=== PATIENT | male | born 1965 | race Caucasian/White ===

== ENCOUNTER 2018-01-10 16:16 | Emergency (ER) | payer MEDICAID ==
[~2018-01-10] VITALS: Ht 170.2 cm; Wt 76.6 kg
[2018-01-10] MEDS ORDERED: SODIUM CHLORIDE 0.9% 1,000ML IVBOLUS ONE (17:00)
[2018-01-10 17:02] LABS: BASOPHILS # (AUTO) 0.05 x10^3/uL (0-0.1); BASOPHILS % (AUTO) 0 % (0-1); EOSINOPHILS # (AUTO) 0.01 x10^3/uL (0-0.4); EOSINOPHILS % (AUTO) 0 % (1-7); LYMPHOCYTES # (AUTO) 0.94 x10^3/uL (1-3.4); LYMPHOCYTES % (AUTO) 6 % (22-44); MD NO; MEAN CORPUSCULAR HEMOGLOBIN 33.3 pg (27.5-34.5); MEAN CORPUSCULAR VOLUME 98.2 fL (81-97); MEAN PLATELET VOLUME 9.2 fL (7.4-10.4); MONOCYTES # (AUTO) 1.01 x10^3/uL (0.2-0.8); MONOCYTES % (AUTO) 6 % (2-9); NEUTROPHILS # (AUTO) 13.75 x10^3/uL (1.8-6.8); NEUTROPHILS % (AUTO) 87 % (42-75); PLATELET COUNT 291 x10^3/uL (130-400); RED BLOOD COUNT 5.16 x10^6/uL (4.38-5.82); RED CELL DISTRIBUTION WIDTH 15.4 % (9.4-14.8)
[2018-01-10 17:11] LABS: ALBUMIN 3.5 g/dL (3.4-5.0); ANION GAP 24 mmol/L (5-15); CALCIUM 10.6 mg/dL (8.5-10.1); CHLORIDE 105 mmol/L (98-107); SALICYLATE LEVEL 4.8 mg/dL (2.8-20.0)
[2018-01-10 17:16] LABS: ALANINE AMINOTRANSFERASE 24 U/L (12-78); ALKALINE PHOSPHATASE 98 U/L (45-117); BILIRUBIN,TOTAL 1.1 mg/dL (0.2-1.0); CREATININE 1.11 mg/dL (0.7-1.3); TOTAL PROTEIN 7.4 g/dL (6.4-8.2)
[2018-01-10 17:17] LABS: ACETAMINOPHEN < 2 mcg/mL (10-30)
[2018-01-10 18:44] LABS: MICROSCOPIC INDICATED
[2018-01-10 18:51] LABS: AMPHETAMINE SCREEN, URINE Negative (Negative); BARBITURATE SCREEN, URINE Negative (Negative); BENZODIAZEPINE SCREEN, URINE Negative (Negative); CANNABINOID SCREEN, URINE Negative (Negative); COCAINE SCREEN, URINE Negative (Negative); METHADONE SCREEN, URINE Negative (Negative); OPIATE SCREEN, URINE Negative (Negative)
[2018-01-10 18:58] LABS: CULTURE INDICATED? NO
[2018-01-10 19:44] VITALS: BP 154/91
[2018-01-10] MEDS ORDERED: SIMV80TA7 PO (19:46)
[2018-01-10] MEDS ORDERED: METF1000 PO (19:46)
[2018-01-10] MEDS ORDERED: BACITRACIN ZINC OINT 500U/GM, 0.9 GM ONE (19:59)
== END 2018-01-10 20:27 | disposition home or self-care (01) ==
LOC: ED 17:28
DX: K85.00 Idiopathic acute pancreatitis without necrosis or infection (principal); E11.621 Type 2 diabetes mellitus with foot ulcer; L89.891 Pressure ulcer of other site, stage 1; R45.851 Suicidal ideations; F20.9 Schizophrenia, unspecified; E78.00 Pure hypercholesterolemia, unspecified; Z59.0 Homelessness; Z87.891 Personal history of nicotine dependence; Z91.14 Patient's other noncompliance with medication regimen
CPT/HCPCS: 36415; 73630; 76700; 80053; 80307; 80329; 81001; 83690; 85025; 96360; 99285; J7030; G0480

== ENCOUNTER 2018-01-11 10:54 | Inpatient (IN) | payer MEDICARE, MEDICAID ==
[~2018-01-11] VITALS: Ht 172.7 cm; Wt 86.2 kg
[~2018-01-11 10:54] MED LIST: METF1000 PO; SIMV80TA7 PO
[2018-01-11] MEDS ORDERED: SODIUM CHLORIDE FLUSH 10ML SYR IVF ONE (12:00)
[2018-01-11 12:10] LABS: MEAN CORPUSCULAR HEMOGLOBIN 32.7 pg (27.5-34.5); MEAN CORPUSCULAR HGB CONC 33.8 g/dL (33.2-36.2); MEAN CORPUSCULAR VOLUME 96.7 fL (81-97); MEAN PLATELET VOLUME 8.9 fL (7.4-10.4); PLATELET COUNT 220 x10^3/uL (130-400); RED BLOOD COUNT 4.46 x10^6/uL (4.38-5.82); RED CELL DISTRIBUTION WIDTH 15.6 % (9.4-14.8)
[2018-01-11 12:11] LABS: INTERNATIONAL NORMALIZED RATIO 1.02 (0.93-1.1); PROTHROMBIN TIME 10.5 Seconds (9.6-11.5)
[2018-01-11 12:14] LABS: ANION GAP 20 mmol/L (5-15); CALCIUM 9.7 mg/dL (8.5-10.1); CHLORIDE 98 mmol/L (98-107)
[2018-01-11 12:20] LABS: ALANINE AMINOTRANSFERASE 22 U/L (12-78); ALKALINE PHOSPHATASE 80 U/L (45-117); BILIRUBIN,TOTAL 1.4 mg/dL (0.2-1.0); CREATININE 0.92 mg/dL (0.7-1.3); HEMOGRAM NOTE RECHECKED; TOTAL PROTEIN 6.4 g/dL (6.4-8.2); TROPONIN I < 0.015 ng/mL (0.000-0.045)
[2018-01-11 12:29] LABS: MD YES
[2018-01-11 12:30] LABS: BAND#(MANUAL) 0.67 x10^3/uL; BANDS%(MANUAL) 4 % (0-7); LYMPH#(MANUAL) 0.84 x10^3/uL (1-3.4); LYMPHS% (MANUAL) 5 % (22-44); MONOS#(MANUAL) 0.34 x10^3/uL (0.3-2.7); MONOS% (MANUAL) 2 % (2-9); SEG#(MANUAL) 14.95 x10^3/uL (1.8-6.8); SEGS% (MANUAL) 89 % (42-75)
[2018-01-11] MEDS ORDERED: THIAMINE 100MG TABLET ONE (12:30)
[2018-01-11] MEDS ORDERED: SODIUM CHLORIDE 0.9% 1,000ML IVBOLUS ONE ×2 (12:30→13:30)
[2018-01-11] MEDS ORDERED: MAGNESIUM SULFATE 1 GM in SODIUM CHLORIDE 0.9% 50 ML IV ONE (12:30)
[2018-01-11] MEDS ORDERED: POTASSIUM CHLORIDE 10% 40 MEQ/30 ML UDC PO ONE (12:30)
[2018-01-11] MEDS ORDERED: POTASSIUM CHLORIDE 20 MEQ TAB.ER.PRT ONE (12:30)
[2018-01-11] MEDS ORDERED: THIAMINE 100MG TABLET PO ONE (12:30)
[2018-01-11 12:31] LABS: <PLATELET ESTIMATE> ADEQUATE; <PLT MORPHOLOGY> NORMAL PLT MORPH; <RBC MORPHOLOGY> NORMAL
[2018-01-11 12:44] LABS: PH, VENOUS 7.345 pH (7.320-7.420)
[2018-01-11 12:50] LABS: O2 FLOW ROOM AIR L/min
[2018-01-11 14:13] LABS: MICROSCOPIC AUTO
[2018-01-11] MEDS ORDERED: OMNIPAQUE 350 MG/ML, 100ML BOTTLE ONE (14:14)
[2018-01-11 14:17] LABS: CULTURE INDICATED? NO
[2018-01-11] MEDS ORDERED: LABETALOL 5MG/ML, 20ML IVPush PRN (16:30)
[2018-01-11] MEDS ORDERED: ACETAMINOPHEN 325 MG TABLET PO PRN (16:30)
[2018-01-11] MEDS ORDERED: BISACODYL 10 MG SUPP PR PRN (16:30)
[2018-01-11] MEDS ORDERED: POLYETHYLENE GLYCOL 17 GM PACKET PO PRN (16:30)
[2018-01-11] MEDS ORDERED: ONDANSETRON 2MG/ML, 2ML IVPush PRN (16:30)
[2018-01-11] MEDS ORDERED: ONDANSETRON ODT 4 MG PO PRN (16:30)
[2018-01-11] MEDS ORDERED: DEXTROSE 50%, 50ML SYRINGE IVPush PRN (17:00)
[2018-01-11] MEDS ORDERED: DEXTROSE 4 GM TAB.CHEW PO PRN (17:00)
[2018-01-11] MEDS ORDERED: GLUCAGON 1 MG IM PRN (17:00)
[2018-01-11] MEDS ORDERED: ENALAPRILAT 1.25 MG/ML, 2ML IVPush PRN (17:30)
[2018-01-11 17:36] VITALS: BP 101/59
[2018-01-11] MEDS: INSULIN LISPRO 100 UNITS/ML, PEN SQ-INSULIN SCH (21:00)
[2018-01-11] MEDS: NS + 20MEQ KCL 1,000 ML IV SCH (21:36)
[2018-01-11] MEDS: SODIUM CHLORIDE FLUSH 10ML SYR IVF SCH (21:36)
[2018-01-11] MEDS: NICOTINE 14MG/24 HR PATCH.TD24 TD SCH (21:36)
[2018-01-11] MEDS: ENOXAPARIN 40 MG/0.4 ML SQ SCH (21:36)
[2018-01-11 21:53] VITALS: BP 110/71
[2018-01-12 02:51] VITALS: BP 113/67
[2018-01-12 05:36] LABS: ALANINE AMINOTRANSFERASE 17 U/L (12-78); ALBUMIN 2.3 g/dL (3.4-5.0); ANION GAP 17 mmol/L (5-15); CALCIUM 8.6 mg/dL (8.5-10.1); CHLORIDE 103 mmol/L (98-107)
[2018-01-12 05:44] LABS: BASOPHILS # (AUTO) 0.03 x10^3/uL (0-0.1); BASOPHILS % (AUTO) 0 % (0-1); EOSINOPHILS # (AUTO) 0.11 x10^3/uL (0-0.4); EOSINOPHILS % (AUTO) 1 % (1-7); LYMPHOCYTES # (AUTO) 1.49 x10^3/uL (1-3.4); LYMPHOCYTES % (AUTO) 19 % (22-44); MD NO; MEAN CORPUSCULAR HEMOGLOBIN 32.7 pg (27.5-34.5); MEAN CORPUSCULAR VOLUME 96.2 fL (81-97); MEAN PLATELET VOLUME 8.9 fL (7.4-10.4); MONOCYTES # (AUTO) 0.54 x10^3/uL (0.2-0.8); MONOCYTES % (AUTO) 7 % (2-9); NEUTROPHILS % (AUTO) 72 % (42-75); PLATELET COUNT 171 x10^3/uL (130-400); RED BLOOD COUNT 3.76 x10^6/uL (4.38-5.82); RED CELL DISTRIBUTION WIDTH 15.7 % (9.4-14.8)
[2018-01-12 05:50] LABS: ALKALINE PHOSPHATASE 59 U/L (45-117); CREATININE 0.69 mg/dL (0.7-1.3); TOTAL PROTEIN 5.1 g/dL (6.4-8.2)
[2018-01-12] MEDS: POTASSIUM CHLORIDE 20 MEQ TAB.ER.PRT PO SCH ×2 (06:26→17:33)
[2018-01-12] MEDS: INSULIN LISPRO 100 UNITS/ML, PEN SQ-INSULIN SCH ×4 (07:00→20:26)
[2018-01-12] MEDS: NS + 20MEQ KCL 1,000 ML IV SCH (07:37)
[2018-01-12] MEDS: SODIUM CHLORIDE FLUSH 10ML SYR IVF SCH ×2 (07:39→20:53)
[2018-01-12 08:42] VITALS: BP 100/63
[2018-01-12] MEDS ORDERED: POTASSIUM PHOSPHATE 44 MEQ in SODIUM CHLORIDE 0.9% 500 ML IV ONE (09:00)
[2018-01-12] MEDS: POTASSIUM CHLORIDE 40 MEQ in LACTATED RINGERS 1,000 ML IV SCH ×2 (09:38→20:53)
[2018-01-12 10:22] LABS: HEMOGLOBIN A1C 5.5 % (4.2-6.3)
[2018-01-12 10:44] LABS: AMPHETAMINE SCREEN, URINE Negative (Negative); BARBITURATE SCREEN, URINE Negative (Negative); BENZODIAZEPINE SCREEN, URINE Negative (Negative); CANNABINOID SCREEN, URINE Negative (Negative); COCAINE SCREEN, URINE Negative (Negative); METHADONE SCREEN, URINE Negative (Negative)
[2018-01-12 10:49] LABS: OPIATE SCREEN, URINE Negative (Negative)
[2018-01-12 12:39] VITALS: BP 104/66
[2018-01-12] MEDS: FOLIC ACID 1 MG TABLET PO SCH (13:12)
[2018-01-12] MEDS: THIAMINE 100MG TABLET PO SCH (13:12)
[2018-01-12 13:40] LABS: SALICYLATE LEVEL 3.2 mg/dL (2.8-20.0)
[2018-01-12 13:51] LABS: ACETAMINOPHEN < 2 mcg/mL (10-30)
[2018-01-12 20:00] VITALS: BP 101/58
[2018-01-12] MEDS: NICOTINE 14MG/24 HR PATCH.TD24 TD SCH (20:53)
[2018-01-12] MEDS: ENOXAPARIN 40 MG/0.4 ML SQ SCH (20:53)
[2018-01-13 02:00] VITALS: BP 103/67
[2018-01-13 05:41] LABS: BASOPHILS # (AUTO) 0.04 x10^3/uL (0-0.1); BASOPHILS % (AUTO) 1 % (0-1); EOSINOPHILS # (AUTO) 0.13 x10^3/uL (0-0.4); EOSINOPHILS % (AUTO) 2 % (1-7); LYMPHOCYTES # (AUTO) 1.66 x10^3/uL (1-3.4); LYMPHOCYTES % (AUTO) 29 % (22-44); MD NO; MEAN CORPUSCULAR HEMOGLOBIN 33.1 pg (27.5-34.5); MEAN CORPUSCULAR HGB CONC 34.2 g/dL (33.2-36.2); MEAN CORPUSCULAR VOLUME 96.9 fL (81-97); MONOCYTES # (AUTO) 0.42 x10^3/uL (0.2-0.8); MONOCYTES % (AUTO) 8 % (2-9); NEUTROPHILS # (AUTO) 3.43 x10^3/uL (1.8-6.8); NEUTROPHILS % (AUTO) 60 % (42-75); PLATELET COUNT 143 x10^3/uL (130-400); RED BLOOD COUNT 3.71 x10^6/uL (4.38-5.82); RED CELL DISTRIBUTION WIDTH 15.1 % (9.4-14.8)
[2018-01-13 05:42] LABS: CHLORIDE 102 mmol/L (98-107)
[2018-01-13 06:05] LABS: ALANINE AMINOTRANSFERASE 16 U/L (12-78); ALBUMIN 2.2 g/dL (3.4-5.0); ALKALINE PHOSPHATASE 52 U/L (45-117); ANION GAP 13 mmol/L (5-15); BILIRUBIN,TOTAL 0.8 mg/dL (0.2-1.0); CALCIUM 8.8 mg/dL (8.5-10.1); CREATININE 0.56 mg/dL (0.7-1.3)
[2018-01-13 07:30] VITALS: BP 122/83
[2018-01-13] MEDS: INSULIN LISPRO 100 UNITS/ML, PEN SQ-INSULIN SCH ×4 (07:51→20:34)
[2018-01-13] MEDS: SODIUM CHLORIDE FLUSH 10ML SYR IVF SCH ×4 (08:14→21:00)
[2018-01-13] MEDS: THIAMINE 100MG TABLET PO SCH (08:14)
[2018-01-13] MEDS: FOLIC ACID 1 MG TABLET PO SCH (08:14)
[2018-01-13 08:18] VITALS: BP 111/72
[2018-01-13] MEDS ORDERED: GLUCAGON 1 MG IM PRN (09:00)
[2018-01-13] MEDS ORDERED: DEXTROSE 50%, 50ML SYRINGE IVPush PRN (09:00)
[2018-01-13] MEDS ORDERED: DEXTROSE 4 GM TAB.CHEW PO PRN (09:00)
[2018-01-13] MEDS: DOCUSATE 100 MG CAPSULE PO PRN (09:58)
[2018-01-13] MEDS: POTASSIUM CHLORIDE 20 MEQ TAB.ER.PRT PO SCH ×2 (09:58→16:29)
[2018-01-13] MEDS ORDERED: POTASSIUM PHOSPHATE 44 MEQ in SODIUM CHLORIDE 0.9% 500 ML IV ONE (10:00)
[2018-01-13] MEDS: IBUPROFEN 600 MG TABLET PO PRN (11:35)
[2018-01-13 13:30] VITALS: BP 118/80
[2018-01-13] MEDS: SENNA/DOCUSATE TABLET PO SCH (16:29)
[2018-01-13 19:21] VITALS: BP 116/77
[2018-01-13] MEDS: ENOXAPARIN 40 MG/0.4 ML SQ SCH (20:38)
[2018-01-13] MEDS: NICOTINE 14MG/24 HR PATCH.TD24 TD SCH (21:04)
[2018-01-14 01:32] VITALS: BP 122/79
[2018-01-14] MEDS: INSULIN LISPRO 100 UNITS/ML, PEN SQ-INSULIN SCH ×4 (07:00→21:00)
[2018-01-14 07:07] VITALS: BP 123/83
[2018-01-14] MEDS: SODIUM CHLORIDE FLUSH 10ML SYR IVF SCH ×4 (07:33→20:08)
[2018-01-14] MEDS: THIAMINE 100MG TABLET PO SCH (07:50)
[2018-01-14] MEDS: FOLIC ACID 1 MG TABLET PO SCH (07:51)
[2018-01-14] MEDS: SENNA/DOCUSATE TABLET PO SCH (07:52)
[2018-01-14 11:07] LABS: ANION GAP 9 mmol/L (5-15); CALCIUM 9.4 mg/dL (8.5-10.1); CHLORIDE 101 mmol/L (98-107); CREATININE 0.54 mg/dL (0.7-1.3)
[2018-01-14] MEDS ORDERED: POTASSIUM CHLORIDE 20 MEQ TAB.ER.PRT PO ONE (12:00)
[2018-01-14 12:38] LABS: HCT (SEDRATE) 42.3 % (39.2-51.8)
[2018-01-14 14:16] VITALS: BP 118/81
[2018-01-14] MEDS ORDERED: AMOX1TAB12 PO (17:51)
[2018-01-14] MEDS ORDERED: THIA100T67 PO (17:51)
[2018-01-14 18:55] VITALS: BP 127/84
[2018-01-14] MEDS: AMOXICILLIN/CLAV 875-125MG TABLET PO SCH (20:04)
[2018-01-14] MEDS: ENOXAPARIN 40 MG/0.4 ML SQ SCH (21:00)
[2018-01-14] MEDS: NICOTINE 14MG/24 HR PATCH.TD24 TD SCH (21:00)
[2018-01-15 02:02] VITALS: BP 121/80
[2018-01-15] MEDS: INSULIN LISPRO 100 UNITS/ML, PEN SQ-INSULIN SCH ×4 (07:00→21:00)
[2018-01-15] MEDS: SODIUM CHLORIDE FLUSH 10ML SYR IVF SCH ×4 (07:26→21:00)
[2018-01-15] MEDS: SENNA/DOCUSATE TABLET PO SCH (07:58)
[2018-01-15] MEDS: AMOXICILLIN/CLAV 875-125MG TABLET PO SCH ×2 (07:59→22:30)
[2018-01-15] MEDS: FOLIC ACID 1 MG TABLET PO SCH (08:00)
[2018-01-15] MEDS: THIAMINE 100MG TABLET PO SCH (08:00)
[2018-01-15 08:37] VITALS: BP 131/89
[2018-01-15 14:56] VITALS: BP 104/75
[2018-01-15] MEDS ORDERED: SODIUM CHLORIDE 0.9%, 500ML IVBOLUS ONE (17:00)
[2018-01-15] MEDS ORDERED: LACTATED RINGERS 500 ML IVBOLUS ONE (17:00)
[2018-01-15] MEDS: OLANZAPINE 10 MG TABLET PO SCH (21:00)
[2018-01-15] MEDS: NICOTINE 14MG/24 HR PATCH.TD24 TD SCH (21:00)
[2018-01-15] MEDS: ENOXAPARIN 40 MG/0.4 ML SQ SCH (21:00)
[2018-01-15 21:23] VITALS: BP 118/74
[2018-01-15] MEDS ORDERED: OLANZAPINE 5 MG TABLET ONE (22:04)
[2018-01-16 02:10] VITALS: BP 104/72
[2018-01-16] MEDS: INSULIN LISPRO 100 UNITS/ML, PEN SQ-INSULIN SCH ×4 (07:00→20:27)
[2018-01-16 07:02] VITALS: BP 130/92
[2018-01-16] MEDS: AMOXICILLIN/CLAV 875-125MG TABLET PO SCH ×2 (08:38→20:26)
[2018-01-16] MEDS: SODIUM CHLORIDE FLUSH 10ML SYR IVF SCH ×4 (08:39→20:26)
[2018-01-16] MEDS: FOLIC ACID 1 MG TABLET PO SCH (08:39)
[2018-01-16] MEDS: THIAMINE 100MG TABLET PO SCH (08:39)
[2018-01-16] MEDS: SENNA/DOCUSATE TABLET PO SCH (08:39)
[2018-01-16] MEDS ORDERED: SODIUM CHLORIDE 0.9%, 500ML IVBOLUS ONE (12:00)
[2018-01-16] MEDS: NS + 20MEQ KCL 1,000 ML IV SCH (12:15)
[2018-01-16 13:20] VITALS: BP 103/52
[2018-01-16 19:44] VITALS: BP 97/64
[2018-01-16] MEDS: OLANZAPINE 10 MG TABLET PO SCH (20:26)
[2018-01-16] MEDS: NICOTINE 14MG/24 HR PATCH.TD24 TD SCH (20:27)
[2018-01-16] MEDS: ENOXAPARIN 40 MG/0.4 ML SQ SCH (20:27)
[2018-01-17] MEDS: NS + 20MEQ KCL 1,000 ML IV SCH ×3 (00:31→20:46)
[2018-01-17 02:45] VITALS: BP 118/73
[2018-01-17 06:14] LABS: BASOPHILS # (AUTO) 0.03 x10^3/uL (0-0.1); BASOPHILS % (AUTO) 1 % (0-1); EOSINOPHILS # (AUTO) 0.21 x10^3/uL (0-0.4); EOSINOPHILS % (AUTO) 3 % (1-7); LYMPHOCYTES # (AUTO) 1.77 x10^3/uL (1-3.4); LYMPHOCYTES % (AUTO) 28 % (22-44); MD NO; MEAN CORPUSCULAR HEMOGLOBIN 33.6 pg (27.5-34.5); MEAN CORPUSCULAR HGB CONC 33.9 g/dL (33.2-36.2); MEAN CORPUSCULAR VOLUME 99.1 fL (81-97); MEAN PLATELET VOLUME 8.7 fL (7.4-10.4); MONOCYTES # (AUTO) 0.62 x10^3/uL (0.2-0.8); MONOCYTES % (AUTO) 10 % (2-9); NEUTROPHILS # (AUTO) 3.64 x10^3/uL (1.8-6.8); NEUTROPHILS % (AUTO) 58 % (42-75); PLATELET COUNT 191 x10^3/uL (130-400); RED BLOOD COUNT 3.99 x10^6/uL (4.38-5.82); RED CELL DISTRIBUTION WIDTH 16.1 % (9.4-14.8)
[2018-01-17 06:25] LABS: ANION GAP 11 mmol/L (5-15); CALCIUM 8.7 mg/dL (8.5-10.1); CHLORIDE 110 mmol/L (98-107)
[2018-01-17 06:29] LABS: CREATININE 0.53 mg/dL (0.7-1.3)
[2018-01-17] MEDS: INSULIN LISPRO 100 UNITS/ML, PEN SQ-INSULIN SCH ×4 (07:00→21:00)
[2018-01-17 07:44] VITALS: BP 113/75
[2018-01-17] MEDS: SODIUM CHLORIDE FLUSH 10ML SYR IVF SCH ×4 (09:00→20:47)
[2018-01-17] MEDS: AMOXICILLIN/CLAV 875-125MG TABLET PO SCH (09:00)
[2018-01-17] MEDS: DOCUSATE 100 MG CAPSULE PO PRN (09:05)
[2018-01-17] MEDS: FOLIC ACID 1 MG TABLET PO SCH (09:05)
[2018-01-17] MEDS: SENNA/DOCUSATE TABLET PO SCH (09:05)
[2018-01-17] MEDS: THIAMINE 100MG TABLET PO SCH (09:05)
[2018-01-17] MEDS: TAMSULOSIN 0.4 MG CAP.ER.24H PO SCH (10:30)
[2018-01-17] MEDS ORDERED: LORazepam 2 MG/ML, 1ML IVPush ONE (11:00)
[2018-01-17 12:53] VITALS: BP 105/63
[2018-01-17 20:23] VITALS: BP 126/85
[2018-01-17] MEDS: NICOTINE 14MG/24 HR PATCH.TD24 TD SCH (21:00)
[2018-01-17] MEDS: D5%-0.9% NACL+KCL 20MEQ 1,000 ML IV SCH (23:13)
[2018-01-17] MEDS: ENOXAPARIN 40 MG/0.4 ML SQ SCH (23:14)
[2018-01-18 02:00] VITALS: BP 103/68
[2018-01-18] MEDS: INSULIN LISPRO 100 UNITS/ML, PEN SQ-INSULIN SCH ×4 (07:00→20:16)
[2018-01-18 08:05] VITALS: BP 99/65
[2018-01-18] MEDS: SODIUM CHLORIDE FLUSH 10ML SYR IVF SCH ×4 (09:00→20:16)
[2018-01-18] MEDS: THIAMINE 100MG TABLET PO SCH (09:06)
[2018-01-18] MEDS: TAMSULOSIN 0.4 MG CAP.ER.24H PO SCH (09:06)
[2018-01-18] MEDS: SENNA/DOCUSATE TABLET PO SCH (09:06)
[2018-01-18] MEDS: FOLIC ACID 1 MG TABLET PO SCH (09:06)
[2018-01-18] MEDS: D5%-0.9% NACL+KCL 20MEQ 1,000 ML IV SCH ×2 (09:56→21:31)
[2018-01-18] MEDS ORDERED: LORazepam 0.5MG TABLET PO PRN (10:30)
[2018-01-18] MEDS: LORazepam 0.5MG TABLET PO SCH ×2 (10:50→20:14)
[2018-01-18 13:12] VITALS: BP 86/53
[2018-01-18 19:30] VITALS: BP 88/59
[2018-01-18] MEDS: NICOTINE 14MG/24 HR PATCH.TD24 TD SCH (20:13)
[2018-01-18] MEDS: ENOXAPARIN 40 MG/0.4 ML SQ SCH (20:14)
[2018-01-19] VITALS (7 sets, daily range): BP systolic 86–116; BP diastolic 58–77
[2018-01-19 05:36] LABS: CHLORIDE 110 mmol/L (98-107)
[2018-01-19 05:44] LABS: ALANINE AMINOTRANSFERASE 19 U/L (12-78); ALBUMIN 2.5 g/dL (3.4-5.0); ALKALINE PHOSPHATASE 63 U/L (45-117); ANION GAP 9 mmol/L (5-15); BILIRUBIN,TOTAL 0.6 mg/dL (0.2-1.0); CALCIUM 8.7 mg/dL (8.5-10.1); CREATININE 0.54 mg/dL (0.7-1.3); PREALBUMIN 15.2 mg/dL (20.0-40.0); TOTAL PROTEIN 5.5 g/dL (6.4-8.2)
[2018-01-19] MEDS: D5%-0.9% NACL+KCL 20MEQ 1,000 ML IV SCH (08:00)
[2018-01-19] MEDS: INSULIN LISPRO 100 UNITS/ML, PEN SQ-INSULIN SCH ×4 (08:00→20:02)
[2018-01-19] MEDS: SODIUM CHLORIDE FLUSH 10ML SYR IVF SCH ×4 (09:00→20:21)
[2018-01-19] MEDS: TAMSULOSIN 0.4 MG CAP.ER.24H PO SCH (09:41)
[2018-01-19] MEDS: THIAMINE 100MG TABLET PO SCH (09:41)
[2018-01-19] MEDS: FOLIC ACID 1 MG TABLET PO SCH (09:41)
[2018-01-19] MEDS: SENNA/DOCUSATE TABLET PO SCH (09:41)
[2018-01-19] MEDS: LORazepam 0.5MG TABLET PO SCH ×2 (09:42→20:20)
[2018-01-19] MEDS: NICOTINE 14MG/24 HR PATCH.TD24 TD SCH (20:20)
[2018-01-19] MEDS: ENOXAPARIN 40 MG/0.4 ML SQ SCH (20:21)
[2018-01-20 02:07] VITALS: BP 100/70
[2018-01-20 05:37] LABS: ANION GAP 9 mmol/L (5-15); CALCIUM 9.1 mg/dL (8.5-10.1); CHLORIDE 108 mmol/L (98-107)
[2018-01-20 05:38] LABS: CREATININE 0.69 mg/dL (0.7-1.3)
[2018-01-20 07:30] VITALS: BP 108/75
[2018-01-20] MEDS: SODIUM CHLORIDE FLUSH 10ML SYR IVF SCH ×4 (09:00→21:47)
[2018-01-20] MEDS: THIAMINE 100MG TABLET PO SCH (10:39)
[2018-01-20] MEDS: LORazepam 0.5MG TABLET PO SCH ×2 (10:39→21:47)
[2018-01-20] MEDS: TAMSULOSIN 0.4 MG CAP.ER.24H PO SCH (10:40)
[2018-01-20] MEDS: SENNA/DOCUSATE TABLET PO SCH (10:40)
[2018-01-20] MEDS: FOLIC ACID 1 MG TABLET PO SCH (10:40)
[2018-01-20 13:45] VITALS: BP 113/78
[2018-01-20] MEDS: ARIPIPRAZOLE 5 MG TABLET PO SCH (15:30)
[2018-01-20] MEDS: IBUPROFEN 600 MG TABLET PO PRN (18:06)
[2018-01-20 20:48] VITALS: BP 102/71
[2018-01-20] MEDS: ENOXAPARIN 40 MG/0.4 ML SQ SCH (21:47)
[2018-01-21 00:40] VITALS: BP 107/74
[2018-01-21 07:45] VITALS: BP 104/73
[2018-01-21] MEDS: ARIPIPRAZOLE 5 MG TABLET PO SCH (08:28)
[2018-01-21] MEDS: FOLIC ACID 1 MG TABLET PO SCH (08:28)
[2018-01-21] MEDS: TAMSULOSIN 0.4 MG CAP.ER.24H PO SCH (08:28)
[2018-01-21] MEDS: LORazepam 0.5MG TABLET PO SCH ×3 (08:28→21:53)
[2018-01-21] MEDS: SENNA/DOCUSATE TABLET PO SCH (08:28)
[2018-01-21] MEDS: THIAMINE 100MG TABLET PO SCH (08:29)
[2018-01-21] MEDS: SODIUM CHLORIDE FLUSH 10ML SYR IVF SCH ×4 (09:00→21:54)
[2018-01-21 13:13] VITALS: BP 100/61
[2018-01-21] MEDS: DOCUSATE 100 MG CAPSULE PO PRN (16:04)
[2018-01-21 19:27] VITALS: BP 96/68
[2018-01-21] MEDS: ENOXAPARIN 40 MG/0.4 ML SQ SCH (21:53)
[2018-01-22 01:50] VITALS: BP 101/68
[2018-01-22 04:52] LABS: ALBUMIN 2.2 g/dL (3.4-5.0); ANION GAP 4 mmol/L (5-15); CALCIUM 8.1 mg/dL (8.5-10.1); CHLORIDE 111 mmol/L (98-107)
[2018-01-22 04:56] LABS: ALANINE AMINOTRANSFERASE 17 U/L (12-78); ALKALINE PHOSPHATASE 54 U/L (45-117); BILIRUBIN,TOTAL 0.3 mg/dL (0.2-1.0); CREATININE 0.58 mg/dL (0.7-1.3)
[2018-01-22 07:22] VITALS: BP 102/67
[2018-01-22] MEDS: TAMSULOSIN 0.4 MG CAP.ER.24H PO SCH (08:57)
[2018-01-22] MEDS: SODIUM CHLORIDE FLUSH 10ML SYR IVF SCH ×4 (08:57→21:00)
[2018-01-22] MEDS: FOLIC ACID 1 MG TABLET PO SCH (08:57)
[2018-01-22] MEDS: ARIPIPRAZOLE 5 MG TABLET PO SCH (08:58)
[2018-01-22] MEDS: LORazepam 0.5MG TABLET PO SCH ×3 (08:58→20:50)
[2018-01-22] MEDS: SENNA/DOCUSATE TABLET PO SCH (08:58)
[2018-01-22] MEDS: THIAMINE 100MG TABLET PO SCH (08:58)
[2018-01-22 14:00] VITALS: BP 108/67
[2018-01-22] MEDS: ENOXAPARIN 40 MG/0.4 ML SQ SCH (20:50)
[2018-01-22 21:51] VITALS: BP 91/53
[2018-01-23 01:00] VITALS: BP 89/55
[2018-01-23 07:30] VITALS: BP 109/71
[2018-01-23] MEDS: FOLIC ACID 1 MG TABLET PO SCH (08:44)
[2018-01-23] MEDS: TAMSULOSIN 0.4 MG CAP.ER.24H PO SCH (08:44)
[2018-01-23] MEDS: LORazepam 0.5MG TABLET PO SCH ×3 (08:44→21:01)
[2018-01-23] MEDS: SENNA/DOCUSATE TABLET PO SCH (08:44)
[2018-01-23] MEDS: THIAMINE 100MG TABLET PO SCH (08:44)
[2018-01-23] MEDS: ARIPIPRAZOLE 5 MG TABLET PO SCH (08:44)
[2018-01-23] MEDS: SODIUM CHLORIDE FLUSH 10ML SYR IVF SCH ×3 (08:46→21:03)
[2018-01-23 13:47] VITALS: BP 91/64
[2018-01-23 18:59] VITALS: BP 113/76
[2018-01-23] MEDS: ENOXAPARIN 40 MG/0.4 ML SQ SCH (21:03)
[2018-01-24 02:55] VITALS: BP 105/70
[2018-01-24 07:12] VITALS: BP 114/79
[2018-01-24] MEDS ORDERED: TAMS-11 PO (08:42)
[2018-01-24] MEDS ORDERED: ARIP5TAB13 PO (08:42)
[2018-01-24] MEDS ORDERED: LORA-445 PO (08:42)
[2018-01-24] MEDS: SENNA/DOCUSATE TABLET PO SCH (09:00)
[2018-01-24] MEDS: SODIUM CHLORIDE FLUSH 10ML SYR IVF SCH ×2 (09:00→20:29)
[2018-01-24] MEDS: TAMSULOSIN 0.4 MG CAP.ER.24H PO SCH (09:43)
[2018-01-24] MEDS: ARIPIPRAZOLE 5 MG TABLET PO SCH (09:43)
[2018-01-24] MEDS: FOLIC ACID 1 MG TABLET PO SCH (09:43)
[2018-01-24] MEDS: LORazepam 0.5MG TABLET PO SCH ×3 (09:43→20:30)
[2018-01-24] MEDS ORDERED: ARIPIPRAZOLE 5 MG TABLET PO ONE (12:30)
[2018-01-24 12:35] VITALS: BP 110/72
[2018-01-24 19:35] VITALS: BP 110/75
[2018-01-24] MEDS: ENOXAPARIN 40 MG/0.4 ML SQ SCH (20:30)
[2018-01-25 02:57] VITALS: BP 111/75
[2018-01-25 07:00] VITALS: BP 114/79
[2018-01-25] MEDS: SENNA/DOCUSATE TABLET PO SCH (09:00)
[2018-01-25] MEDS: SODIUM CHLORIDE FLUSH 10ML SYR IVF SCH ×2 (09:00→19:24)
[2018-01-25] MEDS: FOLIC ACID 1 MG TABLET PO SCH (09:00)
[2018-01-25] MEDS ORDERED: ARIPIPRAZOLE 10 MG TABLET PO SCH (09:00)
[2018-01-25] MEDS: LORazepam 0.5MG TABLET PO SCH ×2 (10:18→16:52)
[2018-01-25] MEDS: TAMSULOSIN 0.4 MG CAP.ER.24H PO SCH (10:18)
[2018-01-25 14:00] VITALS: BP 104/68
[2018-01-25] MEDS: ENOXAPARIN 40 MG/0.4 ML SQ SCH (19:24)
== END 2018-01-25 20:00 | DRG 885 ==
LOC: ED 14:49 → OBSVTOIN 16:26 → EDIP 16:26 → 3NE 17:13 → 4WST 01-12 09:47 → 3NE 01-21 01:27
PROVIDERS: ADMIT Internal Medicine; ATTEND Internal Medicine
DX: F20.2 Catatonic schizophrenia (principal); E43 Unspecified severe protein-calorie malnutrition; E87.2 Acidosis; J98.11 Atelectasis; K56.7 Ileus, unspecified; G93.40 Encephalopathy, unspecified; R17 Unspecified jaundice; S91.301A Unspecified open wound, right foot, initial encounter; R62.7 Adult failure to thrive; S91.302A Unspecified open wound, left foot, initial encounter; E87.6 Hypokalemia; E11.9 Type 2 diabetes mellitus without complications; Z68.28 Body mass index [BMI] 28.0-28.9, adult; Z88.8 Allergy status to other drugs, medicaments and biological substances; X58.XXXA Exposure to other specified factors, initial encounter; Y93.89 Activity, other specified; Y92.89 Other specified places as the place of occurrence of the external cause; Y99.8 Other external cause status; E78.00 Pure hypercholesterolemia, unspecified; E78.5 Hyperlipidemia, unspecified; E83.39 Other disorders of phosphorus metabolism; E86.0 Dehydration; F32.9 Major depressive disorder, single episode, unspecified; F43.20 Adjustment disorder, unspecified; G31.84 Mild cognitive impairment of uncertain or unknown etiology; N28.1 Cyst of kidney, acquired; R09.02 Hypoxemia; Z59.0 Homelessness; Z87.891 Personal history of nicotine dependence; F19.959 Other psychoactive substance use, unspecified with psychoactive substance-induced psychotic disorder, unspecified
CPT/HCPCS: 36415; 70450; 71045; 71046; 71250; 74177; 80048; 80053; 80307; 80329; 81001; 82140; 82533; 82803; 82962; 83036; 83605; 83690; 83735; 84100; 84134; 84145; 84153; 84443; 84484; 85025; 85610; 85651; 86140; 93005; 96365; 99285; G0378; J1650; J3475; J3480; Q9967; 92523-GN; G0103; G0480; G0515-GN; J1815; J2060; J7030; J7040; J7120

== ENCOUNTER 2018-01-31 09:09 | Emergency (ER) | payer MEDICARE, MEDICAID ==
[~2018-01-31] VITALS: Ht 170.2 cm; Wt 70.0 kg
[~2018-01-31 09:09] MED LIST changes: +AMOX1TAB12 PO; +ARIP5TAB13 PO; +LORA-445 PO; +TAMS-11 PO; +THIA100T67 PO
[2018-01-31] MEDS ORDERED: SODIUM CHLORIDE 0.9% 1,000 ML IV ONE (09:28)
[2018-01-31] MEDS ORDERED: SODIUM CHLORIDE 0.9% 1,000ML IVBOLUS ONE (09:30)
[2018-01-31] MEDS ORDERED: SODIUM CHLORIDE FLUSH 10ML SYR IVF ONE (09:30)
[2018-01-31 09:44] LABS: BASOPHILS # (AUTO) 0.06 x10^3/uL (0-0.1); BASOPHILS % (AUTO) 1 % (0-1); EOSINOPHILS # (AUTO) 0.16 x10^3/uL (0-0.4); EOSINOPHILS % (AUTO) 3 % (1-7); LYMPHOCYTES # (AUTO) 1.07 x10^3/uL (1-3.4); LYMPHOCYTES % (AUTO) 22 % (22-44); MD NO; MEAN CORPUSCULAR HEMOGLOBIN 33.3 pg (27.5-34.5); MEAN CORPUSCULAR HGB CONC 33.7 g/dL (33.2-36.2); MEAN CORPUSCULAR VOLUME 98.9 fL (81-97); MEAN PLATELET VOLUME 7.9 fL (7.4-10.4); MONOCYTES # (AUTO) 0.31 x10^3/uL (0.2-0.8); MONOCYTES % (AUTO) 6 % (2-9); NEUTROPHILS # (AUTO) 3.33 x10^3/uL (1.8-6.8); NEUTROPHILS % (AUTO) 68 % (42-75); PLATELET COUNT 160 x10^3/uL (130-400); RED BLOOD COUNT 4.41 x10^6/uL (4.38-5.82); RED CELL DISTRIBUTION WIDTH 15.5 % (9.4-14.8)
[2018-01-31 09:56] LABS: ALBUMIN 2.6 g/dL (3.4-5.0); ANION GAP 6 mmol/L (5-15); CALCIUM 8.5 mg/dL (8.5-10.1); CHLORIDE 112 mmol/L (98-107)
[2018-01-31 10:01] LABS: ALANINE AMINOTRANSFERASE 17 U/L (12-78); ALKALINE PHOSPHATASE 73 U/L (45-117); BILIRUBIN,TOTAL 0.6 mg/dL (0.2-1.0); CREATININE 0.79 mg/dL (0.7-1.3); TROPONIN I < 0.015 ng/mL (0.000-0.045)
[2018-01-31 11:01] LABS: MICROSCOPIC NOT IND
[2018-01-31 11:02] LABS: CULTURE INDICATED? NO
[2018-01-31 11:26] VITALS: BP 151/94
== END 2018-01-31 11:56 | disposition home or self-care (01) ==
LOC: ED 11:38
DX: R55 Syncope and collapse (principal); E11.9 Type 2 diabetes mellitus without complications; E78.00 Pure hypercholesterolemia, unspecified; F20.9 Schizophrenia, unspecified; Z87.891 Personal history of nicotine dependence
CPT/HCPCS: 36415; 70450; 71045; 80053; 81003; 84484; 85025; 93005; 96360; 96361; 99285; J7030

== ENCOUNTER 2018-07-25 14:16 | Emergency (ER) | payer MEDICARE, MEDICAID ==
[~2018-07-25] VITALS: Ht 167.6 cm; Wt 90.0 kg
[~2018-07-25 14:16] MED LIST changes: +SIMV80TA18 PO; -SIMV80TA7 PO
--- NOTE | 2018-07-25 14:43 | NUR ---
PT BIB [facility] AFTER BEING FOUND DOWN AND UNABLE TO AMBULATE. PER [facility], PT HAS A HX: DM, HTN, AND PSYCH. PT A&OX4. PT PLACED IN ROOM AND PLACED ON BP AND CONT. PULSE OXIMETER. ASSESSMENT COMPLETED. MD AT BEDSIDE. IV STARTED IN FIELD. PT STATES HE HAS BEEN DRINKING TODAY. PT WITH HX: ETOH. 2 SIDE RAILS UP AND CALL LIGHT IN REACH. PT HAS AN OLD WRIST BAND ON FROM ANOTHER HOSPITAL.
[2018-07-25 15:03] LABS: BASOPHILS # (AUTO) 0.02 x10^3/uL (0-0.1); BASOPHILS % (AUTO) 0 % (0-1); EOSINOPHILS # (AUTO) 0.11 x10^3/uL (0-0.4); EOSINOPHILS % (AUTO) 1 % (1-7); LYMPHOCYTES # (AUTO) 1.41 x10^3/uL (1-3.4); LYMPHOCYTES % (AUTO) 14 % (22-44); MD NO; MEAN CORPUSCULAR HEMOGLOBIN 32.4 pg (27.5-34.5); MEAN CORPUSCULAR HGB CONC 33.8 g/dL (33.2-36.2); MEAN CORPUSCULAR VOLUME 95.6 fL (81-97); MEAN PLATELET VOLUME 8.7 fL (7.4-10.4); MONOCYTES # (AUTO) 0.32 x10^3/uL (0.2-0.8); MONOCYTES % (AUTO) 3 % (2-9); NEUTROPHILS # (AUTO) 8.55 x10^3/uL (1.8-6.8); NEUTROPHILS % (AUTO) 82 % (42-75); PLATELET COUNT 222 x10^3/uL (130-400); RED BLOOD COUNT 5.07 x10^6/uL (4.38-5.82)
--- NOTE | 2018-07-25 15:07 | NUR ---
Report to [facility] N[facility].
[2018-07-25 15:09] LABS: ALBUMIN 3.3 g/dL (3.4-5.0); ANION GAP 12 mmol/L (5-15); CALCIUM 9.5 mg/dL (8.5-10.1); CHLORIDE 96 mmol/L (98-107); CREATININE 0.83 mg/dL (0.7-1.3)
[2018-07-25 15:30] VITALS: BP 137/81
--- NOTE | 2018-07-25 15:30 | NUR ---
Pt is awake, requesting food. Meal tray ordered.
--- NOTE | 2018-07-25 16:30 | NUR ---
Pt ate, back to sleep. Remains on continuous pulse ox monitor, no supplemental oxygen needed
--- NOTE | 2018-07-25 17:01 | NUR ---
Has eaten meal tray. Amb with steady gait unassisted to restroom.
--- NOTE | 2018-07-25 17:15 | NUR ---
Left before d/c papers received. IV was taken out prior to leaving.
== END 2018-07-25 17:17 | disposition left against medical advice (07) ==
LOC: ED 17:11
DX: F10.120 Alcohol abuse with intoxication, uncomplicated (principal); E11.9 Type 2 diabetes mellitus without complications; F20.9 Schizophrenia, unspecified
CPT/HCPCS: 36415; 80048; 82040; 85025; 99283

== ENCOUNTER 2018-07-29 08:26 | Inpatient (IN) | payer MEDICARE, MEDICAID ==
[~2018-07-29] VITALS: Ht 157.5 cm; Wt 93.2 kg
[2018-07-29] MEDS ORDERED: DOCUSATE 100 MG CAPSULE PO PRN (09:30)
[2018-07-29] MEDS ORDERED: BISACODYL 10 MG SUPP PR PRN (09:30)
[2018-07-29] MEDS ORDERED: ONDANSETRON ODT 4 MG PO PRN (09:30)
[2018-07-29] MEDS ORDERED: POLYETHYLENE GLYCOL 17 GM PACKET PO PRN (09:30)
[2018-07-29] MEDS ORDERED: PLEASE ENTER HEIGHT AND WEIGHT MC SCH (10:30)
[2018-07-29 10:43] VITALS: BP 124/77
[2018-07-29] MEDS ORDERED: ONDANSETRON 2MG/ML, 2ML IVPush PRN (11:30)
[2018-07-29 12:26] LABS: HCT (SEDRATE) 44.9 % (39.2-51.8)
[2018-07-29 12:30] LABS: BASOPHILS # (AUTO) 0.02 x10^3/uL (0-0.1); BASOPHILS % (AUTO) 0 % (0-1); EOSINOPHILS # (AUTO) 0.15 x10^3/uL (0-0.4); EOSINOPHILS % (AUTO) 1 % (1-7); LYMPHOCYTES # (AUTO) 1.76 x10^3/uL (1-3.4); LYMPHOCYTES % (AUTO) 16 % (22-44); MD NO; MEAN CORPUSCULAR HEMOGLOBIN 32.2 pg (27.5-34.5); MEAN CORPUSCULAR HGB CONC 33.6 g/dL (33.2-36.2); MEAN CORPUSCULAR VOLUME 96.1 fL (81-97); MEAN PLATELET VOLUME 8.1 fL (7.4-10.4); MONOCYTES # (AUTO) 0.22 x10^3/uL (0.2-0.8); MONOCYTES % (AUTO) 2 % (2-9); NEUTROPHILS # (AUTO) 8.96 x10^3/uL (1.8-6.8); NEUTROPHILS % (AUTO) 81 % (42-75); PLATELET COUNT 243 x10^3/uL (130-400); RED BLOOD COUNT 4.72 x10^6/uL (4.38-5.82); RED CELL DISTRIBUTION WIDTH 13.3 % (9.4-14.8)
[2018-07-29 12:39] LABS: CHLORIDE 100 mmol/L (98-107)
[2018-07-29 13:40] LABS: ALANINE AMINOTRANSFERASE 32 U/L (12-78); ALBUMIN 3.1 g/dL (3.4-5.0); ALKALINE PHOSPHATASE 115 U/L (45-117); BILIRUBIN,TOTAL 0.6 mg/dL (0.2-1.0); CALCIUM 9.2 mg/dL (8.5-10.1); CHOLESTEROL, TOTAL 106 mg/dL (140-239); FREE T4 (FREE THYROXINE) 1.33 ng/dL (0.76-1.46); HDL CHOL % 49 % (26-37); HDL CHOLESTEROL (DIRECT) 52 mg/dL (40-60); LDL CHOLESTEROL,CALCULATED 34 mg/dL (54-169); LDL/HDL RATIO 0.7 (0.5-3.0); TOTAL PROTEIN 5.9 g/dL (6.4-8.2); TRIGLYCERIDES 101 mg/dL (50-200); VLDL CHOLESTEROL 20 mg/dL (0-25)
[2018-07-29 13:41] LABS: ANION GAP 9 mmol/L (5-15)
[2018-07-29] MEDS: SIMVASTATIN 40 MG TABLET PO SCH (20:24)
[2018-07-29] MEDS: DIVALPROEX 500 MG TAB.ER.24H PO SCH (20:24)
[2018-07-29 21:04] VITALS: BP 106/65
[2018-07-30 01:34] LABS: MICROSCOPIC NOT IND
[2018-07-30 01:35] LABS: CULTURE INDICATED? NO
[2018-07-30 07:20] VITALS: BP 135/83
[2018-07-30] MEDS: THIAMINE 100MG TABLET PO SCH (08:43)
[2018-07-30] MEDS: ARIPIPRAZOLE 10 MG TABLET PO SCH (08:43)
[2018-07-30] MEDS: TAMSULOSIN 0.4 MG CAP.ER.24H PO SCH (08:43)
[2018-07-30] MEDS: DIVALPROEX 500 MG TAB.ER.24H PO SCH ×2 (08:43→20:25)
[2018-07-30] MEDS ORDERED: ARIPIPRAZOLE 5 MG TABLET PO SCH ×2 (09:00)
[2018-07-30] MEDS: NICOTINE 14MG/24 HR PATCH.TD24 TD SCH (16:08)
[2018-07-30] MEDS: SIMVASTATIN 40 MG TABLET PO SCH (20:25)
[2018-07-31] MEDS: DIVALPROEX 500 MG TAB.ER.24H PO SCH ×4 (09:29→21:00)
[2018-07-31] MEDS: THIAMINE 100MG TABLET PO SCH ×3 (09:29→12:10)
[2018-07-31] MEDS: LORazepam 0.5MG TABLET PO PRN ×2 (09:29→12:10)
[2018-07-31] MEDS: ARIPIPRAZOLE 10 MG TABLET PO SCH ×3 (09:29→12:10)
[2018-07-31] MEDS: TAMSULOSIN 0.4 MG CAP.ER.24H PO SCH ×3 (09:29→12:10)
[2018-07-31] MEDS ORDERED: LORazepam 1MG TABLET PO PRN (10:00)
[2018-07-31] MEDS ORDERED: LORazepam 2 MG/ML, 1ML IM PRN (10:00)
[2018-07-31] MEDS ORDERED: HALOPERIDOL 5 MG TABLET PO PRN (10:00)
[2018-07-31] MEDS ORDERED: HALOPERIDOL 5 MG/ML IM PRN (10:00)
[2018-07-31] MEDS: NICOTINE 14MG/24 HR PATCH.TD24 TD SCH ×2 (12:11→14:30)
[2018-07-31] MEDS: SIMVASTATIN 40 MG TABLET PO SCH (21:00)
[2018-08-01] MEDS: THIAMINE 100MG TABLET PO SCH (08:28)
[2018-08-01] MEDS: TAMSULOSIN 0.4 MG CAP.ER.24H PO SCH (08:28)
[2018-08-01] MEDS: ARIPIPRAZOLE 10 MG TABLET PO SCH (08:28)
[2018-08-01] MEDS: DIVALPROEX 500 MG TAB.ER.24H PO SCH ×3 (08:28→21:00)
[2018-08-01] MEDS: NICOTINE 14MG/24 HR PATCH.TD24 TD SCH (15:09)
[2018-08-01] MEDS: SIMVASTATIN 40 MG TABLET PO SCH ×2 (20:17→21:00)
[2018-08-02 07:16] VITALS: BP 134/87
[2018-08-02] MEDS: TAMSULOSIN 0.4 MG CAP.ER.24H PO SCH (07:57)
[2018-08-02] MEDS: DIVALPROEX 500 MG TAB.ER.24H PO SCH ×2 (07:57→20:22)
[2018-08-02] MEDS: THIAMINE 100MG TABLET PO SCH (07:57)
[2018-08-02] MEDS: ARIPIPRAZOLE 15 MG TABLET PO SCH (07:57)
[2018-08-02] MEDS: LORazepam 0.5MG TABLET PO PRN (07:57)
[2018-08-02] MEDS: NICOTINE 14MG/24 HR PATCH.TD24 TD SCH (13:45)
[2018-08-02] MEDS: SIMVASTATIN 40 MG TABLET PO SCH (20:21)
[2018-08-03 07:11] VITALS: BP 141/92
[2018-08-03] MEDS: ARIPIPRAZOLE 15 MG TABLET PO SCH (08:35)
[2018-08-03] MEDS: DIVALPROEX 500 MG TAB.ER.24H PO SCH ×2 (08:35→20:11)
[2018-08-03] MEDS: THIAMINE 100MG TABLET PO SCH (08:35)
[2018-08-03] MEDS: TAMSULOSIN 0.4 MG CAP.ER.24H PO SCH (08:37)
[2018-08-03] MEDS: NICOTINE 14MG/24 HR PATCH.TD24 TD SCH (15:00)
[2018-08-03 19:47] VITALS: BP 145/95
[2018-08-03] MEDS: LORazepam 0.5MG TABLET PO PRN (20:11)
[2018-08-03] MEDS: SIMVASTATIN 40 MG TABLET PO SCH (20:12)
[2018-08-04] MEDS: LORazepam 0.5MG TABLET PO PRN ×2 (04:58→22:51)
[2018-08-04] MEDS: DIVALPROEX 500 MG TAB.ER.24H PO SCH ×2 (08:27→21:00)
[2018-08-04] MEDS: THIAMINE 100MG TABLET PO SCH (08:27)
[2018-08-04] MEDS: TAMSULOSIN 0.4 MG CAP.ER.24H PO SCH (08:27)
[2018-08-04] MEDS: ARIPIPRAZOLE 15 MG TABLET PO SCH (08:27)
[2018-08-04 09:42] VITALS: BP 117/79
[2018-08-04] MEDS: NICOTINE 14MG/24 HR PATCH.TD24 TD SCH (14:19)
[2018-08-04] MEDS ORDERED: PALIPERIDONE PALMITATE 234 MG/1.5 ML IM ONE (17:30)
[2018-08-04] MEDS: SIMVASTATIN 40 MG TABLET PO SCH (21:00)
[2018-08-05 07:31] VITALS: BP 102/70
[2018-08-05] MEDS ORDERED: PALIPERIDONE PALMITATE 234 MG/1.5 ML IM ONE (08:00)
[2018-08-05] MEDS: THIAMINE 100MG TABLET PO SCH (08:09)
[2018-08-05] MEDS: TAMSULOSIN 0.4 MG CAP.ER.24H PO SCH (08:09)
[2018-08-05] MEDS: LORazepam 0.5MG TABLET PO PRN (08:09)
[2018-08-05] MEDS: DIVALPROEX 500 MG TAB.ER.24H PO SCH ×2 (08:09→20:00)
[2018-08-05] MEDS: ARIPIPRAZOLE 15 MG TABLET PO SCH (08:09)
[2018-08-05] MEDS: NICOTINE 14MG/24 HR PATCH.TD24 TD SCH (15:09)
[2018-08-05] MEDS: SIMVASTATIN 40 MG TABLET PO SCH (19:58)
[2018-08-05 20:15] VITALS: BP 118/78
[2018-08-06 07:11] VITALS: BP 112/74
[2018-08-06] MEDS: THIAMINE 100MG TABLET PO SCH (09:56)
[2018-08-06] MEDS: TAMSULOSIN 0.4 MG CAP.ER.24H PO SCH (09:57)
[2018-08-06] MEDS: DIVALPROEX 500 MG TAB.ER.24H PO SCH ×2 (09:57→20:21)
[2018-08-06] MEDS: ARIPIPRAZOLE 15 MG TABLET PO SCH (09:58)
[2018-08-06] MEDS: NICOTINE 14MG/24 HR PATCH.TD24 TD SCH (15:32)
[2018-08-06 19:40] VITALS: BP 109/76
[2018-08-06] MEDS: SIMVASTATIN 40 MG TABLET PO SCH (20:21)
[2018-08-07 07:32] VITALS: BP 106/75
[2018-08-07] MEDS: THIAMINE 100MG TABLET PO SCH (08:52)
[2018-08-07] MEDS: DIVALPROEX 500 MG TAB.ER.24H PO SCH ×2 (08:52→21:14)
[2018-08-07] MEDS: ARIPIPRAZOLE 15 MG TABLET PO SCH (08:52)
[2018-08-07] MEDS: TAMSULOSIN 0.4 MG CAP.ER.24H PO SCH (08:52)
[2018-08-07 11:07] VITALS: BP 144/83
[2018-08-07] MEDS: NICOTINE 14MG/24 HR PATCH.TD24 TD SCH (15:02)
[2018-08-07] MEDS: LORazepam 0.5MG TABLET PO PRN ×2 (16:55→21:14)
[2018-08-07] MEDS: SIMVASTATIN 40 MG TABLET PO SCH (21:14)
[2018-08-07 21:30] VITALS: BP 125/88
[2018-08-08 07:35] VITALS: BP 119/72
[2018-08-08] MEDS: DIVALPROEX 500 MG TAB.ER.24H PO SCH ×2 (08:27→19:21)
[2018-08-08] MEDS: TAMSULOSIN 0.4 MG CAP.ER.24H PO SCH (08:27)
[2018-08-08] MEDS: THIAMINE 100MG TABLET PO SCH (08:27)
[2018-08-08] MEDS: ARIPIPRAZOLE 15 MG TABLET PO SCH (08:27)
[2018-08-08] MEDS: NICOTINE 14MG/24 HR PATCH.TD24 TD SCH (15:12)
[2018-08-08] MEDS: SIMVASTATIN 40 MG TABLET PO SCH (19:21)
[2018-08-08 22:00] VITALS: BP 125/83
[2018-08-09 07:24] VITALS: BP 112/79
[2018-08-09] MEDS: DIVALPROEX 500 MG TAB.ER.24H PO SCH ×2 (07:37→19:56)
[2018-08-09] MEDS: THIAMINE 100MG TABLET PO SCH (07:37)
[2018-08-09] MEDS: ARIPIPRAZOLE 15 MG TABLET PO SCH (07:37)
[2018-08-09] MEDS: TAMSULOSIN 0.4 MG CAP.ER.24H PO SCH (07:38)
[2018-08-09] MEDS: NICOTINE 14MG/24 HR PATCH.TD24 TD SCH (14:02)
[2018-08-09] MEDS ORDERED: LORazepam 1MG TABLET ONE (16:46)
[2018-08-09 19:23] VITALS: BP 145/92
[2018-08-09] MEDS: SIMVASTATIN 40 MG TABLET PO SCH (19:55)
[2018-08-10 07:15] VITALS: BP 119/76
[2018-08-10] MEDS: THIAMINE 100MG TABLET PO SCH (08:14)
[2018-08-10] MEDS: DIVALPROEX 500 MG TAB.ER.24H PO SCH ×2 (08:14→19:54)
[2018-08-10] MEDS: TAMSULOSIN 0.4 MG CAP.ER.24H PO SCH (08:14)
[2018-08-10] MEDS: ARIPIPRAZOLE 10 MG TABLET PO SCH (08:14)
[2018-08-10] MEDS: NICOTINE 14MG/24 HR PATCH.TD24 TD SCH (14:30)
[2018-08-10] MEDS ORDERED: PALIPERIDONE PALMITATE 156 MG/ML IM ONE (18:30)
[2018-08-10 19:29] VITALS: BP 103/69
[2018-08-10] MEDS: SIMVASTATIN 40 MG TABLET PO SCH (19:53)
[2018-08-11 07:14] VITALS: BP 124/77
[2018-08-11] MEDS: DIVALPROEX 500 MG TAB.ER.24H PO SCH ×2 (08:26→20:22)
[2018-08-11] MEDS: ARIPIPRAZOLE 10 MG TABLET PO SCH (08:26)
[2018-08-11] MEDS: TAMSULOSIN 0.4 MG CAP.ER.24H PO SCH (08:27)
[2018-08-11] MEDS: THIAMINE 100MG TABLET PO SCH (08:27)
[2018-08-11] MEDS ORDERED: PALIPERIDONE PALMITATE 156 MG/ML IM ONE (09:00)
[2018-08-11] MEDS: NICOTINE 14MG/24 HR PATCH.TD24 TD SCH (14:30)
[2018-08-11] MEDS: LORazepam 0.5MG TABLET PO PRN ×2 (14:31→21:23)
[2018-08-11] MEDS: SIMVASTATIN 40 MG TABLET PO SCH (20:22)
[2018-08-11 22:31] VITALS: BP 137/84
[2018-08-12 07:26] VITALS: BP 124/75
[2018-08-12] MEDS: DIVALPROEX 500 MG TAB.ER.24H PO SCH ×2 (08:34→20:11)
[2018-08-12] MEDS: THIAMINE 100MG TABLET PO SCH (08:35)
[2018-08-12] MEDS: TAMSULOSIN 0.4 MG CAP.ER.24H PO SCH (08:35)
[2018-08-12] MEDS: LORazepam 0.5MG TABLET PO PRN ×3 (08:35→23:44)
[2018-08-12] MEDS: NICOTINE 14MG/24 HR PATCH.TD24 TD SCH (14:34)
[2018-08-12 19:45] VITALS: BP 102/70
[2018-08-12] MEDS: SIMVASTATIN 40 MG TABLET PO SCH (20:11)
[2018-08-13 07:16] VITALS: BP 109/76
[2018-08-13] MEDS: TAMSULOSIN 0.4 MG CAP.ER.24H PO SCH (08:32)
[2018-08-13] MEDS: DIVALPROEX 500 MG TAB.ER.24H PO SCH ×2 (08:32→20:00)
[2018-08-13] MEDS: THIAMINE 100MG TABLET PO SCH (08:33)
[2018-08-13] MEDS: LORazepam 0.5MG TABLET PO PRN (08:33)
[2018-08-13] MEDS: NICOTINE 14MG/24 HR PATCH.TD24 TD SCH (14:51)
[2018-08-13 19:19] VITALS: BP 111/78
[2018-08-13] MEDS: SIMVASTATIN 40 MG TABLET PO SCH (19:59)
[2018-08-13] MEDS: OLANZAPINE 5 MG TABLET PO SCH (19:59)
[2018-08-14 07:15] VITALS: BP 130/74
[2018-08-14] MEDS: TAMSULOSIN 0.4 MG CAP.ER.24H PO SCH (08:55)
[2018-08-14] MEDS: THIAMINE 100MG TABLET PO SCH (08:55)
[2018-08-14] MEDS: DIVALPROEX 500 MG TAB.ER.24H PO SCH ×2 (08:55→19:51)
[2018-08-14] MEDS: OLANZAPINE 5 MG TABLET PO SCH ×2 (08:55→19:52)
[2018-08-14] MEDS: LORazepam 0.5MG TABLET PO PRN ×2 (09:33→19:51)
[2018-08-14] MEDS: NICOTINE 14MG/24 HR PATCH.TD24 TD SCH (15:16)
[2018-08-14 19:21] VITALS: BP 125/82
[2018-08-14] MEDS: SIMVASTATIN 40 MG TABLET PO SCH (19:52)
[2018-08-14] MEDS ORDERED: OLANZAPINE 10 MG INJ IM ONE (20:00)
[2018-08-14] MEDS ORDERED: OLANZAPINE 10 MG INJ IM PRN (20:30)
[2018-08-15 07:59] VITALS: BP 120/79
[2018-08-15] MEDS: OLANZAPINE 5 MG TABLET PO SCH (08:35)
[2018-08-15] MEDS: DIVALPROEX 500 MG TAB.ER.24H PO SCH ×2 (08:35→20:04)
[2018-08-15] MEDS: THIAMINE 100MG TABLET PO SCH (08:35)
[2018-08-15] MEDS: TAMSULOSIN 0.4 MG CAP.ER.24H PO SCH (08:35)
[2018-08-15] MEDS: NICOTINE 14MG/24 HR PATCH.TD24 TD SCH (15:36)
[2018-08-15 19:42] VITALS: BP 136/83
[2018-08-15] MEDS: SIMVASTATIN 40 MG TABLET PO SCH (20:05)
[2018-08-15] MEDS: OLANZAPINE 10 MG TABLET PO SCH (20:05)
[2018-08-16] MEDS ORDERED: DIAZEPAM 5 MG/ML, 2ML IM ONE (02:00)
[2018-08-16 07:19] VITALS: BP 108/73
[2018-08-16] MEDS: DIVALPROEX 500 MG TAB.ER.24H PO SCH ×2 (08:42→20:33)
[2018-08-16] MEDS: OLANZAPINE 10 MG TABLET PO SCH ×2 (08:43→20:33)
[2018-08-16] MEDS: THIAMINE 100MG TABLET PO SCH (08:43)
[2018-08-16] MEDS: TAMSULOSIN 0.4 MG CAP.ER.24H PO SCH (08:44)
[2018-08-16] MEDS: NICOTINE 14MG/24 HR PATCH.TD24 TD SCH (14:21)
[2018-08-16 19:23] VITALS: BP 157/94
[2018-08-16] MEDS: SIMVASTATIN 40 MG TABLET PO SCH (20:33)
[2018-08-16] MEDS: LORazepam 0.5MG TABLET PO PRN (20:33)
[2018-08-16] MEDS ORDERED: LORazepam 2 MG/ML, 1ML IM ONE (22:00)
[2018-08-16] MEDS ORDERED: HALOPERIDOL 5 MG/ML IM ONE (22:00)
[2018-08-17 07:21] VITALS: BP 96/66
[2018-08-17] MEDS: DIVALPROEX 500 MG TAB.ER.24H PO SCH (08:39)
[2018-08-17] MEDS: TAMSULOSIN 0.4 MG CAP.ER.24H PO SCH (08:39)
[2018-08-17] MEDS: THIAMINE 100MG TABLET PO SCH (08:40)
[2018-08-17] MEDS: OLANZAPINE 10 MG TABLET PO SCH ×2 (08:40→20:00)
[2018-08-17] MEDS: LORazepam 0.5MG TABLET PO PRN (08:41)
[2018-08-17] MEDS: NICOTINE 14MG/24 HR PATCH.TD24 TD SCH (14:21)
[2018-08-17 19:37] VITALS: BP 112/73
[2018-08-17] MEDS: DIVALPROEX 250 MG TABLET.DR PO SCH (20:00)
[2018-08-17] MEDS: SIMVASTATIN 40 MG TABLET PO SCH (20:00)
[2018-08-18 07:05] VITALS: BP 120/79
[2018-08-18] MEDS: LORazepam 0.5MG TABLET PO PRN ×2 (07:43→19:51)
[2018-08-18] MEDS: OLANZAPINE 10 MG TABLET PO SCH ×2 (07:44→19:51)
[2018-08-18] MEDS: DIVALPROEX 250 MG TABLET.DR PO SCH ×2 (07:44→19:51)
[2018-08-18] MEDS: THIAMINE 100MG TABLET PO SCH (08:00)
[2018-08-18] MEDS: TAMSULOSIN 0.4 MG CAP.ER.24H PO SCH (08:00)
[2018-08-18] MEDS ORDERED: OLANZAPINE 10 MG INJ IM ONE (08:00)
[2018-08-18 13:04] LABS: BASOPHILS # (AUTO) 0.04 x10^3/uL (0-0.1); BASOPHILS % (AUTO) 1 % (0-1); EOSINOPHILS # (AUTO) 0.25 x10^3/uL (0-0.4); EOSINOPHILS % (AUTO) 5 % (1-7); LYMPHOCYTES % (AUTO) 28 % (22-44); MD NO; MEAN CORPUSCULAR HEMOGLOBIN 32.6 pg (27.5-34.5); MEAN CORPUSCULAR HGB CONC 33.5 g/dL (33.2-36.2); MEAN CORPUSCULAR VOLUME 97.3 fL (81-97); MEAN PLATELET VOLUME 9.1 fL (7.4-10.4); MONOCYTES # (AUTO) 0.38 x10^3/uL (0.2-0.8); MONOCYTES % (AUTO) 7 % (2-9); NEUTROPHILS # (AUTO) 3.36 x10^3/uL (1.8-6.8); NEUTROPHILS % (AUTO) 60 % (42-75); PLATELET COUNT 199 x10^3/uL (130-400); RED BLOOD COUNT 4.72 x10^6/uL (4.38-5.82); RED CELL DISTRIBUTION WIDTH 15.6 % (9.4-14.8)
[2018-08-18 13:16] LABS: ALANINE AMINOTRANSFERASE 27 U/L (12-78); ALBUMIN 3.2 g/dL (3.4-5.0); ANION GAP 8 mmol/L (5-15); CALCIUM 8.9 mg/dL (8.5-10.1); CHLORIDE 108 mmol/L (98-107); CREATININE 0.77 mg/dL (0.7-1.3)
[2018-08-18 13:18] LABS: ALKALINE PHOSPHATASE 81 U/L (45-117); BILIRUBIN,TOTAL 0.3 mg/dL (0.2-1.0); TOTAL PROTEIN 6.3 g/dL (6.4-8.2)
[2018-08-18] MEDS: NICOTINE 14MG/24 HR PATCH.TD24 TD SCH (14:14)
[2018-08-18] MEDS ORDERED: FUROSEMIDE 20 MG TABLET ONE (16:50)
[2018-08-18] MEDS ORDERED: CEPHALEXIN 500 MG CAPSULE ONE (16:52)
[2018-08-18] MEDS: CEPHALEXIN 500 MG CAPSULE PO SCH (16:55)
[2018-08-18] MEDS: FUROSEMIDE 20 MG TABLET PO SCH (16:55)
[2018-08-18 18:17] LABS: HCT (SEDRATE) 45.4 % (39.2-51.8)
[2018-08-18 19:30] VITALS: BP 124/79
[2018-08-18] MEDS: SIMVASTATIN 40 MG TABLET PO SCH (19:52)
[2018-08-18] MEDS ORDERED: OMNIPAQUE 350 MG/ML, 75ML BOTTLE ONE (21:12)
[2018-08-19 06:57] VITALS: BP 105/64
[2018-08-19] MEDS: DIVALPROEX 250 MG TABLET.DR PO SCH ×2 (08:43→20:26)
[2018-08-19] MEDS: TAMSULOSIN 0.4 MG CAP.ER.24H PO SCH (08:43)
[2018-08-19] MEDS: THIAMINE 100MG TABLET PO SCH (08:44)
[2018-08-19] MEDS: CEPHALEXIN 500 MG CAPSULE PO SCH ×2 (08:44→20:26)
[2018-08-19] MEDS: FUROSEMIDE 20 MG TABLET PO SCH (08:44)
[2018-08-19] MEDS: OLANZAPINE 10 MG TABLET PO SCH ×2 (08:45→20:26)
[2018-08-19] MEDS: LORazepam 0.5MG TABLET PO PRN (08:46)
[2018-08-19] MEDS: NICOTINE 14MG/24 HR PATCH.TD24 TD SCH (14:24)
[2018-08-19 19:22] VITALS: BP 103/69
[2018-08-19] MEDS: SIMVASTATIN 40 MG TABLET PO SCH (20:27)
[2018-08-20] MEDS: LORazepam 0.5MG TABLET PO PRN ×2 (06:31→23:59)
[2018-08-20 07:20] VITALS: BP 98/60
[2018-08-20] MEDS: CEPHALEXIN 500 MG CAPSULE PO SCH ×2 (08:26→21:04)
[2018-08-20] MEDS: DIVALPROEX 250 MG TABLET.DR PO SCH ×2 (08:26→21:04)
[2018-08-20] MEDS: TAMSULOSIN 0.4 MG CAP.ER.24H PO SCH (08:26)
[2018-08-20] MEDS: THIAMINE 100MG TABLET PO SCH (08:27)
[2018-08-20] MEDS: OLANZAPINE 10 MG TABLET PO SCH ×2 (08:27→21:05)
[2018-08-20] MEDS ORDERED: FUROSEMIDE 20 MG TABLET PO SCH (09:00)
[2018-08-20] MEDS: NICOTINE 14MG/24 HR PATCH.TD24 TD SCH (14:08)
[2018-08-20 19:50] VITALS: BP 117/74
[2018-08-20] MEDS: SIMVASTATIN 40 MG TABLET PO SCH (21:04)
[2018-08-21 07:07] VITALS: BP 95/59
[2018-08-21] MEDS: TAMSULOSIN 0.4 MG CAP.ER.24H PO SCH (09:10)
[2018-08-21] MEDS: DIVALPROEX 250 MG TABLET.DR PO SCH ×2 (09:11→20:20)
[2018-08-21] MEDS: OLANZAPINE 10 MG TABLET PO SCH ×2 (09:11→20:21)
[2018-08-21] MEDS: CEPHALEXIN 500 MG CAPSULE PO SCH ×2 (09:11→20:20)
[2018-08-21] MEDS: LORazepam 0.5MG TABLET PO PRN ×2 (09:58→21:33)
[2018-08-21] MEDS: ACETAMINOPHEN 325 MG TABLET PO PRN (09:58)
[2018-08-21] MEDS: NICOTINE 14MG/24 HR PATCH.TD24 TD SCH (13:38)
[2018-08-21 19:40] VITALS: BP 122/84
[2018-08-21] MEDS: SIMVASTATIN 40 MG TABLET PO SCH (20:21)
[2018-08-22 07:02] VITALS: BP 117/79
[2018-08-22] MEDS: OLANZAPINE 10 MG TABLET PO SCH ×2 (09:11→20:26)
[2018-08-22] MEDS: DIVALPROEX 250 MG TABLET.DR PO SCH ×2 (09:11→20:24)
[2018-08-22] MEDS: TAMSULOSIN 0.4 MG CAP.ER.24H PO SCH (09:12)
[2018-08-22] MEDS: CEPHALEXIN 500 MG CAPSULE PO SCH ×2 (09:12→20:25)
[2018-08-22] MEDS: METOPROLOL TARTRATE 25 MG TABLET PO SCH ×2 (12:13→18:25)
[2018-08-22 12:14] VITALS: BP 129/83
[2018-08-22] MEDS: NICOTINE 14MG/24 HR PATCH.TD24 TD SCH (14:10)
[2018-08-22 18:16] VITALS: BP 122/81
[2018-08-22 19:24] VITALS: BP 113/77
[2018-08-22] MEDS: SIMVASTATIN 40 MG TABLET PO SCH (20:26)
[2018-08-23 07:11] VITALS: BP 111/74
[2018-08-23] MEDS: OLANZAPINE 10 MG TABLET PO SCH ×2 (08:35→20:00)
[2018-08-23] MEDS: TAMSULOSIN 0.4 MG CAP.ER.24H PO SCH (08:35)
[2018-08-23] MEDS: METOPROLOL TARTRATE 25 MG TABLET PO SCH ×3 (08:36→20:01)
[2018-08-23] MEDS: CEPHALEXIN 500 MG CAPSULE PO SCH ×2 (08:36→20:00)
[2018-08-23] MEDS: DIVALPROEX 250 MG TABLET.DR PO SCH ×2 (08:36→20:01)
[2018-08-23] MEDS: NICOTINE 14MG/24 HR PATCH.TD24 TD SCH (14:51)
[2018-08-23 19:20] VITALS: BP 109/69
[2018-08-23] MEDS: SIMVASTATIN 40 MG TABLET PO SCH (20:00)
[2018-08-24] MEDS ORDERED: OLANZAPINE 10 MG INJ IM ONE (03:30)
[2018-08-24] MEDS ORDERED: LORazepam 2 MG/ML, 1ML IM ONE (03:30)
[2018-08-24 08:00] VITALS: BP 95/63
[2018-08-24] MEDS: CEPHALEXIN 500 MG CAPSULE PO SCH ×2 (08:25→20:18)
[2018-08-24] MEDS: TAMSULOSIN 0.4 MG CAP.ER.24H PO SCH (08:26)
[2018-08-24] MEDS: DIVALPROEX 250 MG TABLET.DR PO SCH ×2 (08:26→20:18)
[2018-08-24] MEDS: OLANZAPINE 10 MG TABLET PO SCH (08:26)
[2018-08-24] MEDS: METOPROLOL TARTRATE 25 MG TABLET PO SCH ×2 (08:31→20:18)
[2018-08-24] MEDS: NICOTINE 14MG/24 HR PATCH.TD24 TD SCH (15:11)
[2018-08-24] MEDS ORDERED: PALIPERIDONE PALMITATE 156 MG/ML IM ONE (18:19)
[2018-08-24 19:26] VITALS: BP 105/67
[2018-08-24] MEDS: RISPERIDONE 1 MG TAB.RAPDIS PO SCH (20:18)
[2018-08-24] MEDS: SIMVASTATIN 40 MG TABLET PO SCH (20:18)
[2018-08-25 07:22] VITALS: BP 105/65
[2018-08-25] MEDS: DIVALPROEX 250 MG TABLET.DR PO SCH ×2 (08:37→20:11)
[2018-08-25] MEDS: METOPROLOL TARTRATE 25 MG TABLET PO SCH ×2 (08:37→20:11)
[2018-08-25] MEDS: TAMSULOSIN 0.4 MG CAP.ER.24H PO SCH (08:37)
[2018-08-25] MEDS: RISPERIDONE 1 MG TAB.RAPDIS PO SCH ×2 (08:37→20:10)
[2018-08-25] MEDS: CEPHALEXIN 500 MG CAPSULE PO SCH ×2 (08:37→20:11)
[2018-08-25] MEDS: NICOTINE 14MG/24 HR PATCH.TD24 TD SCH (14:41)
[2018-08-25 19:46] VITALS: BP 115/76
[2018-08-25] MEDS: SIMVASTATIN 40 MG TABLET PO SCH (20:11)
[2018-08-25] MEDS: DIPHENHYDRAMINE 25 MG CAPSULE PO SCH (20:11)
[2018-08-26 07:10] VITALS: BP 101/70
[2018-08-26] MEDS: TAMSULOSIN 0.4 MG CAP.ER.24H PO SCH (08:46)
[2018-08-26] MEDS: DIVALPROEX 250 MG TABLET.DR PO SCH ×2 (08:46→20:43)
[2018-08-26] MEDS: METOPROLOL TARTRATE 25 MG TABLET PO SCH ×2 (08:47→20:44)
[2018-08-26] MEDS: RISPERIDONE 1 MG TAB.RAPDIS PO SCH ×2 (08:48→20:44)
[2018-08-26] MEDS: NICOTINE 14MG/24 HR PATCH.TD24 TD SCH (14:28)
[2018-08-26 19:37] VITALS: BP 102/68
[2018-08-26] MEDS: DIPHENHYDRAMINE 25 MG CAPSULE PO SCH (20:44)
[2018-08-26] MEDS: SIMVASTATIN 40 MG TABLET PO SCH (20:44)
[2018-08-26] MEDS: LORazepam 0.5MG TABLET PO PRN (23:13)
[2018-08-27 07:23] VITALS: BP 103/67
[2018-08-27] MEDS: METOPROLOL TARTRATE 25 MG TABLET PO SCH ×2 (08:10→20:42)
[2018-08-27] MEDS: DIVALPROEX 250 MG TABLET.DR PO SCH ×2 (08:10→20:42)
[2018-08-27] MEDS: TAMSULOSIN 0.4 MG CAP.ER.24H PO SCH (08:10)
[2018-08-27] MEDS: RISPERIDONE 1 MG TAB.RAPDIS PO SCH ×2 (08:11→20:43)
[2018-08-27] MEDS: NICOTINE 14MG/24 HR PATCH.TD24 TD SCH (14:29)
[2018-08-27 19:36] VITALS: BP 113/74
[2018-08-27] MEDS: SIMVASTATIN 40 MG TABLET PO SCH (20:42)
[2018-08-27] MEDS: DIPHENHYDRAMINE 25 MG CAPSULE PO SCH (20:42)
[2018-08-28 07:15] VITALS: BP 79/50
[2018-08-28] MEDS: DIVALPROEX 250 MG TABLET.DR PO SCH ×2 (08:39→21:00)
[2018-08-28] MEDS: RISPERIDONE 1 MG TAB.RAPDIS PO SCH (08:40)
[2018-08-28] MEDS: TAMSULOSIN 0.4 MG CAP.ER.24H PO SCH (08:40)
[2018-08-28 08:48] VITALS: BP 110/75
[2018-08-28] MEDS: METOPROLOL TARTRATE 25 MG TABLET PO SCH ×2 (09:28→21:07)
[2018-08-28] MEDS: NICOTINE 14MG/24 HR PATCH.TD24 TD SCH (14:30)
[2018-08-28 19:36] VITALS: BP 99/67
[2018-08-28] MEDS: DIPHENHYDRAMINE 25 MG CAPSULE PO SCH (20:59)
[2018-08-28] MEDS: SIMVASTATIN 40 MG TABLET PO SCH (21:00)
[2018-08-28] MEDS: RISPERIDONE 1 MG TABLET PO SCH (21:00)
[2018-08-28 21:09] VITALS: BP 147/78
[2018-08-29 07:25] VITALS: BP 100/63
[2018-08-29] MEDS: TAMSULOSIN 0.4 MG CAP.ER.24H PO SCH (08:47)
[2018-08-29] MEDS: DIVALPROEX 250 MG TABLET.DR PO SCH ×2 (08:47→20:27)
[2018-08-29] MEDS: RISPERIDONE 1 MG TABLET PO SCH ×2 (08:47→20:28)
[2018-08-29] MEDS: METOPROLOL TARTRATE 25 MG TABLET PO SCH ×2 (08:47→20:28)
[2018-08-29] MEDS: NICOTINE 14MG/24 HR PATCH.TD24 TD SCH (14:40)
[2018-08-29 19:33] VITALS: BP 137/87
[2018-08-29] MEDS: DIPHENHYDRAMINE 25 MG CAPSULE PO SCH (20:27)
[2018-08-29] MEDS: SIMVASTATIN 40 MG TABLET PO SCH (20:29)
[2018-08-30 07:36] VITALS: BP 99/62
[2018-08-30] MEDS: DIVALPROEX 250 MG TABLET.DR PO SCH ×2 (09:05→20:26)
[2018-08-30] MEDS: TAMSULOSIN 0.4 MG CAP.ER.24H PO SCH (09:05)
[2018-08-30] MEDS: METOPROLOL TARTRATE 25 MG TABLET PO SCH ×2 (09:05→20:26)
[2018-08-30] MEDS: RISPERIDONE 1 MG TABLET PO SCH ×2 (09:05→20:26)
[2018-08-30] MEDS: NICOTINE 14MG/24 HR PATCH.TD24 TD SCH (14:30)
[2018-08-30 19:39] VITALS: BP 109/68
[2018-08-30] MEDS: DIPHENHYDRAMINE 25 MG CAPSULE PO SCH (20:26)
[2018-08-30] MEDS: SIMVASTATIN 40 MG TABLET PO SCH (20:27)
[2018-08-31 07:41] VITALS: BP 117/79
[2018-08-31] MEDS: METOPROLOL TARTRATE 25 MG TABLET PO SCH ×2 (08:48→20:17)
[2018-08-31] MEDS: DIVALPROEX 250 MG TABLET.DR PO SCH ×2 (08:48→20:16)
[2018-08-31] MEDS: TAMSULOSIN 0.4 MG CAP.ER.24H PO SCH (08:48)
[2018-08-31] MEDS: RISPERIDONE 1 MG TABLET PO SCH ×2 (08:49→20:18)
[2018-08-31] MEDS: LORazepam 0.5MG TABLET PO PRN (08:54)
[2018-08-31] MEDS: NICOTINE 14MG/24 HR PATCH.TD24 TD SCH (15:00)
[2018-08-31 19:50] VITALS: BP 109/73
[2018-08-31 19:52] VITALS: BP 138/98
[2018-08-31] MEDS: DIPHENHYDRAMINE 25 MG CAPSULE PO SCH (20:16)
[2018-08-31] MEDS: SIMVASTATIN 40 MG TABLET PO SCH (20:17)
[2018-09-01 07:23] VITALS: BP 116/74
[2018-09-01] MEDS: TAMSULOSIN 0.4 MG CAP.ER.24H PO SCH (08:53)
[2018-09-01] MEDS: METOPROLOL TARTRATE 25 MG TABLET PO SCH ×2 (08:53→20:19)
[2018-09-01] MEDS: DIVALPROEX 250 MG TABLET.DR PO SCH ×2 (08:53→20:19)
[2018-09-01] MEDS: RISPERIDONE 1 MG TABLET PO SCH ×2 (08:53→20:20)
[2018-09-01] MEDS: NICOTINE 14MG/24 HR PATCH.TD24 TD SCH (14:39)
[2018-09-01 19:54] VITALS: BP 111/73
[2018-09-01] MEDS: DIPHENHYDRAMINE 25 MG CAPSULE PO SCH (20:19)
[2018-09-01] MEDS: SIMVASTATIN 40 MG TABLET PO SCH (20:20)
[2018-09-02 07:11] VITALS: BP 91/59
[2018-09-02] MEDS: TAMSULOSIN 0.4 MG CAP.ER.24H PO SCH (08:09)
[2018-09-02] MEDS: DIVALPROEX 250 MG TABLET.DR PO SCH ×2 (08:09→20:27)
[2018-09-02] MEDS: METOPROLOL TARTRATE 25 MG TABLET PO SCH ×2 (08:10→20:27)
[2018-09-02] MEDS: RISPERIDONE 1 MG TABLET PO SCH ×2 (08:10→20:28)
[2018-09-02 08:19] VITALS: BP 111/70
[2018-09-02] MEDS: NICOTINE 14MG/24 HR PATCH.TD24 TD SCH (15:11)
[2018-09-02 19:30] VITALS: BP 105/75
[2018-09-02] MEDS: DIPHENHYDRAMINE 25 MG CAPSULE PO SCH (20:28)
[2018-09-02] MEDS: SIMVASTATIN 40 MG TABLET PO SCH (21:00)
[2018-09-03] MEDS: ACETAMINOPHEN 325 MG TABLET PO PRN (06:07)
[2018-09-03 07:18] VITALS: BP 102/69
[2018-09-03] MEDS: TAMSULOSIN 0.4 MG CAP.ER.24H PO SCH (08:31)
[2018-09-03] MEDS: DIVALPROEX 250 MG TABLET.DR PO SCH ×2 (08:31→20:00)
[2018-09-03] MEDS: METOPROLOL TARTRATE 25 MG TABLET PO SCH ×2 (08:33→20:00)
[2018-09-03] MEDS: RISPERIDONE 1 MG TABLET PO SCH ×2 (08:35→20:00)
[2018-09-03] MEDS: NICOTINE 14MG/24 HR PATCH.TD24 TD SCH (15:29)
[2018-09-03 19:37] VITALS: BP 117/79
[2018-09-03] MEDS: DIPHENHYDRAMINE 25 MG CAPSULE PO SCH (19:59)
[2018-09-03] MEDS: SIMVASTATIN 40 MG TABLET PO SCH (20:01)
[2018-09-04 07:21] VITALS: BP 103/68
[2018-09-04] MEDS: METOPROLOL TARTRATE 25 MG TABLET PO SCH ×2 (08:28→19:56)
[2018-09-04] MEDS: RISPERIDONE 1 MG TABLET PO SCH ×2 (08:28→19:56)
[2018-09-04] MEDS: TAMSULOSIN 0.4 MG CAP.ER.24H PO SCH (08:28)
[2018-09-04] MEDS: DIVALPROEX 250 MG TABLET.DR PO SCH ×2 (08:28→19:57)
[2018-09-04] MEDS: NICOTINE 14MG/24 HR PATCH.TD24 TD SCH (14:32)
[2018-09-04 19:37] VITALS: BP 105/67
[2018-09-04] MEDS: SIMVASTATIN 40 MG TABLET PO SCH (19:56)
[2018-09-04] MEDS: DIPHENHYDRAMINE 25 MG CAPSULE PO SCH (19:56)
[2018-09-05 07:28] VITALS: BP 104/66
[2018-09-05] MEDS: DIVALPROEX 250 MG TABLET.DR PO SCH ×2 (08:37→19:58)
[2018-09-05] MEDS: TAMSULOSIN 0.4 MG CAP.ER.24H PO SCH (08:37)
[2018-09-05] MEDS: RISPERIDONE 1 MG TABLET PO SCH ×2 (08:37→19:59)
[2018-09-05] MEDS: METOPROLOL TARTRATE 25 MG TABLET PO SCH ×2 (08:38→19:59)
[2018-09-05] MEDS: NICOTINE 14MG/24 HR PATCH.TD24 TD SCH (14:20)
[2018-09-05 19:17] VITALS: BP 102/69
[2018-09-05] MEDS: DIPHENHYDRAMINE 25 MG CAPSULE PO SCH (19:59)
[2018-09-05] MEDS: SIMVASTATIN 40 MG TABLET PO SCH (19:59)
[2018-09-06 07:28] VITALS: BP 98/68
[2018-09-06] MEDS: TAMSULOSIN 0.4 MG CAP.ER.24H PO SCH (08:04)
[2018-09-06] MEDS: DIVALPROEX 250 MG TABLET.DR PO SCH (08:05)
[2018-09-06] MEDS: RISPERIDONE 1 MG TABLET PO SCH (08:05)
[2018-09-06] MEDS: METOPROLOL TARTRATE 25 MG TABLET PO SCH (08:09)
== END 2018-09-06 13:35 | disposition home or self-care (01) | DRG 885 ==
LOC: 3E 09:52
PROVIDERS: ADMIT Psychiatry & Neurology Psychosomatic Medicine; ATTEND Psychiatry & Neurology Psychosomatic Medicine
DX: F20.0 Paranoid schizophrenia (principal); R62.7 Adult failure to thrive; R91.1 Solitary pulmonary nodule; E78.5 Hyperlipidemia, unspecified; N40.1 Benign prostatic hyperplasia with lower urinary tract symptoms; F17.210 Nicotine dependence, cigarettes, uncomplicated; L55.9 Sunburn, unspecified; E86.0 Dehydration; I10 Essential (primary) hypertension; I87.2 Venous insufficiency (chronic) (peripheral); Z59.0 Homelessness; Z79.899 Other long term (current) drug therapy; Z91.19 Patient's noncompliance with other medical treatment and regimen; Z89.422 Acquired absence of other left toe(s); Z89.421 Acquired absence of other right toe(s); Z68.37 Body mass index [BMI] 37.0-37.9, adult
CPT/HCPCS: 36415; 71045; 71260; 80053; 80061; 80164; 81003; 82140; 82607; 83735; 84100; 84439; 84443; 85025; 85379; 85651; 86140; 86592; 87040; 93005; 93306; 93970; J3360; Q9967; J1630; J2060; J2426; Q0163

== ENCOUNTER 2018-11-08 08:29 | Emergency (ER) | payer MEDICARE, MEDICAID ==
[~2018-11-08] VITALS: Ht 170.2 cm; Wt 90.0 kg
--- NOTE | 2018-11-08 09:25 | NUR ---
PRESENTS W/ MULTIPLE COMPLAINTS: REPORTS REFLUX LIKE SYMPTOMS, MALNUTRITION & SHORTNESS OF BREATH REPORTS HX OF SCHIZOPHRENIA FOR WHICH HE DOES NOT TAKE ANT MEDICINES (PATIENT NOTED TO BE TANGENTIAL/RESPONDING TO EXTERNAL STIMULI)\ PATIENT APPEARS WELL, VSS, DOES NOT APPEAR MALNURISHED TO OBTAIN LABS/PO CHALLENGE
[2018-11-08 09:30] LABS: BASOPHILS # (AUTO) 0.03 x10^3/uL (0-0.1); BASOPHILS % (AUTO) 1 % (0-1); EOSINOPHILS # (AUTO) 0.09 x10^3/uL (0-0.4); EOSINOPHILS % (AUTO) 2 % (1-7); LYMPHOCYTES # (AUTO) 0.76 x10^3/uL (1-3.4); LYMPHOCYTES % (AUTO) 12 % (22-44); MD NO; MEAN CORPUSCULAR HEMOGLOBIN 32.7 pg (27.5-34.5); MEAN CORPUSCULAR HGB CONC 33.3 g/dL (33.2-36.2); MEAN CORPUSCULAR VOLUME 98.3 fL (81-97); MEAN PLATELET VOLUME 7.8 fL (7.4-10.4); MONOCYTES # (AUTO) 0.45 x10^3/uL (0.2-0.8); MONOCYTES % (AUTO) 7 % (2-9); NEUTROPHILS # (AUTO) 4.88 x10^3/uL (1.8-6.8); NEUTROPHILS % (AUTO) 79 % (42-75); PLATELET COUNT 215 x10^3/uL (130-400); RED BLOOD COUNT 4.75 x10^6/uL (4.38-5.82); RED CELL DISTRIBUTION WIDTH 13.3 % (9.4-14.8)
--- NOTE | 2018-11-08 09:30 | NUR ---
LAB AT BEDSIDE
[2018-11-08 09:40] LABS: ALBUMIN 3.5 g/dL (3.4-5.0); ANION GAP 8 mmol/L (5-15); CHLORIDE 107 mmol/L (98-107)
[2018-11-08 09:43] LABS: CREATININE 0.94 mg/dL (0.7-1.3)
--- NOTE | 2018-11-08 09:55 | NUR ---
PROVIDED WITH CRACKERS/SPRITE UPDATED ON POC VSS ON POX/NIBP
--- NOTE | 2018-11-08 10:00 | NUR ---
REPORT TO ROGERIO CHERY
[2018-11-08 10:48] VITALS: BP 104/63
--- NOTE | 2018-11-08 10:48 | NUR ---
pt consumed on 12 oz sprite and is working on .
== END 2018-11-08 11:35 | disposition home or self-care (01) ==
LOC: ED 11:25
DX: R53.1 Weakness (principal); R42 Dizziness and giddiness; E86.0 Dehydration; Z72.9 Problem related to lifestyle, unspecified; R20.2 Paresthesia of skin; F20.9 Schizophrenia, unspecified; E78.00 Pure hypercholesterolemia, unspecified; E11.9 Type 2 diabetes mellitus without complications
CPT/HCPCS: 36415; 80048; 82040; 85025; 93005; 99284

== ENCOUNTER 2018-11-23 00:17 | Emergency (ER) | payer MEDICARE, MEDICAID ==
[~2018-11-23] VITALS: Ht 170.2 cm; Wt 97.3 kg
[2018-11-23 00:19] VITALS: BP 117/80
== END 2018-11-23 02:20 | disposition home or self-care (01) ==
LOC: ED 00:28
DX: R42 Dizziness and giddiness (principal); F17.200 Nicotine dependence, unspecified, uncomplicated; E11.9 Type 2 diabetes mellitus without complications; E78.00 Pure hypercholesterolemia, unspecified
CPT/HCPCS: 36415; 80048; 82040; 85025; 99283

== ENCOUNTER 2020-07-12 18:41 | Emergency (ER) | payer MEDICARE, MEDICAID ==
[~2020-07-12] VITALS: Ht 172.7 cm; Wt 106.4 kg
--- NOTE | 2020-07-12 19:25 | NUR ---
assessment made. chart up for MD to see.
--- NOTE | 2020-07-12 20:01 | NUR ---
ERP at bedside.
[2020-07-12] MEDS ORDERED: DEXAMETHASONE 4 MG TABLET PO ONE (21:30)
--- NOTE | 2020-07-12 21:51 | NUR ---
patient discharged with prescription and instruction. verbalized understanding.cab voucher provided to go to [facility].
[2020-07-12 21:52] VITALS: BP 139/78
== END 2020-07-12 21:54 | disposition home or self-care (01) ==
LOC: ED 21:51
DX: J02.8 Acute pharyngitis due to other specified organisms (principal); B97.89 Other viral agents as the cause of diseases classified elsewhere; F17.200 Nicotine dependence, unspecified, uncomplicated
CPT/HCPCS: 99283

== ENCOUNTER 2020-07-21 17:35 | Emergency (ER) | payer MEDICARE, MEDICAID ==
[~2020-07-21] VITALS: Ht 172.7 cm; Wt 104.2 kg
--- NOTE | 2020-07-21 18:37 | NUR ---
CC OF CHILLS ON AND OFF FOR 1 MONTH WITH NAUSEA AND "SOFT POOPS". PT STATES " I WAS OUTSIDE THE [facility] AND THE LADY SAID IF I NEED TO GO TO THE HOSPITAL THEN I SHOULD GO". PT REQUESTING TO GO TO THE THIRD FLOOR SO HE CAN GET HELP WITH WITH DIET.
[2020-07-21 19:09] LABS: ALANINE AMINOTRANSFERASE 18 U/L (12-78); ALBUMIN 3.5 g/dL (3.4-5.0); ANION GAP 5 mmol/L (5-15); CHLORIDE 108 mmol/L (98-107)
[2020-07-21 19:12] LABS: ALKALINE PHOSPHATASE 83 U/L (45-117); BASOPHILS % (AUTO) 1 % (0-1); BILIRUBIN,TOTAL 0.4 mg/dL (0.2-1.0); EOSINOPHILS % (AUTO) 5 % (1-7); LYMPHOCYTES % (AUTO) 21 % (22-44); MEAN CORPUSCULAR HEMOGLOBIN 33.5 pg (27.5-34.5); MEAN CORPUSCULAR HGB CONC 33.7 g/dL (33.2-36.2); MEAN PLATELET VOLUME 8.1 fL (7.4-10.4); MONOCYTES % (AUTO) 7 % (2-9); NEUTROPHILS % (AUTO) 66 % (42-75); PLATELET COUNT 201 x10^3/uL (130-400); RED BLOOD COUNT 4.91 x10^6/uL (4.38-5.82); RED CELL DISTRIBUTION WIDTH 14.7 % (9.4-14.8); TOTAL PROTEIN 6.6 g/dL (6.4-8.2)
[2020-07-21 21:29] VITALS: BP 107/64
--- NOTE | 2020-07-21 21:32 | NUR ---
Patient/Caregiver given discharge instructions and they have confirmed that they understand the instructions. Patient ambulatory with steady gait.
== END 2020-07-21 21:40 | disposition home or self-care (01) ==
LOC: ED 19:58
DX: R11.2 Nausea with vomiting, unspecified (principal); R19.7 Diarrhea, unspecified; Z76.0 Encounter for issue of repeat prescription; R00.0 Tachycardia, unspecified; E11.9 Type 2 diabetes mellitus without complications
CPT/HCPCS: 36415; 80053; 83690; 85025; 99283